=== PATIENT | male | born 1960 | race Caucasian/White ===

== ENCOUNTER 2016-11-13 14:58 | Emergency (ER) | payer OTHER ==
[~2016-11-13] VITALS: Ht 175.3 cm; Wt 190.9 kg
[~2016-11-13 14:58] MED LIST: DICL50TA PO; MELO-1 PO; ROBA750T PO
[2016-11-13 16:41] VITALS: BP 138/74; PULSE 96; RESP 14; TEMP 98.6; O2SAT 96
[2016-11-13 16:53] LABS: AUTOMATED NEUTROPHIL # 5.5 TH/MM3 (1.8-7.7); BASOPHIL % 0.5 % (0.0-2.0); EOSINOPHIL # 0.4 TH/MM3 (0-0.4); EOSINOPHIL % 4.8 % (0.0-4.0); HEMATOCRIT 41.5 % (39.0-51.0); HEMO FLAGS DIFF FINAL; LYMPH % 17.2 % (9.0-44.0); LYMPHOCYTE # 1.4 TH/MM3 (1.0-4.8); MEAN CELL VOLUME 92.9 FL (80.0-100.0); MEAN CORPUSCULAR HGB CONC 33.3 % (32.0-36.0); MONO % 9.9 % (0.0-8.0); NEUT % 67.6 % (16.0-70.0); PLATELET COUNT 188 TH/MM3 (150-450); RED BLOOD COUNT 4.47 MIL/MM3 (4.50-5.90); RED CELL DISTRIBUTION WIDTH 13.7 % (11.6-17.2); WHITE BLOOD COUNT 8.2 TH/MM3 (4.0-11.0)
[2016-11-13 17:18] LABS: ANION GAP 10 MEQ/L (5-15); AST (GOT) 27 U/L (15-37); BICARBONATE 29.4 MEQ/L (21.0-32.0); BLOOD UREA NITROGEN 20 MG/DL (7-18); CHLORIDE 102 MEQ/L (98-107); GLOMERULAR FILTRATION RATE 78 ML/MIN (>89); SODIUM (NA) 141 MEQ/L (136-145)
[2016-11-13 17:21] LABS: ALKALINE PHOSPHATASE 86 U/L (45-117); ALT (GPT) 35 U/L (12-78); TOTAL BILIRUBIN ADULT 0.4 MG/DL (0.2-1.0)
[2016-11-13 17:56] VITALS: BP 152/104; PULSE 96; RESP 20; TEMP 98.6; O2SAT 98
--- NOTE | 2016-11-13 18:09 | PD ---
HPI Chief Complaint: Psychiatric Symptoms Time Seen by Provider: 18:03 Travel History International Travel<30 days: No Contact w/Intl Traveler<30days: No Traveled to known affect area: No History of Present Illness HPI 55-year-old male that presents to the ED for evaluation of psych. [facility] to [facility] and suicidal ideation. per rios act patient is being more depressed and anxious secondary to problems with his left knee as well as recent move and stressors. He denies any drug abuse. Per patient his symptoms and mother and continued to get worse. He denies any homicidal ideation. Per rios he does have a history of bipolar disorder and has been suicidal. Denies any chest pain or shortness of breath. Denies any other complaint other than pain on the left knee which is chronic from multiple injuries for which he was told that he will require a knee replacement. Patient has no allergies to medication. Nothing makes symptoms better or worse. PFSH Past Medical History Cardiovascular Problems: Yes ([place] 2012) Hypertension: Yes Myocardial Infarction: Yes Past Surgical History Tonsillectomy: Yes Social History Alcohol Use: Yes Tobacco Use: No Substance Use: No Allergies-Medications (Allergen,Severity, Reaction): Coded Allergies: No Known Allergies (Unverified , 07/11/16) Reported Meds & Prescriptions Reported Meds & Active Scripts Active Robaxin (Methocarbamol) 750 Mg Tab 750 Mg PO TID PRN Diclofenac Potassium 50 Mg Tab 50 Mg PO TID PRN Reported Meloxicam 15 Mg Tab 15 Mg PO DAILY Review of Systems General / Constitutional: No: Fever, Chills, Weight Gain, Weight Loss, Other Eyes: No: Diploplia, Blurred Vision, Photophobia, Drainage, Redness, Foreign Body Sensation, Pain, Tearing, Blind Spots, Visual changes, Blindness, Other HENT: No: Headaches, Vertigo, Lightheadedness, Sore Throat, Rhinitis, Rhinorrhea, Congestion, Nosebleed, Neck Stiffness, Neck Pain, Masses, Gingival Bleeding, Dental Difficulties, Ear Discharge, Earache, Other Cardiovascular: No: Chest Pain or Discomfort, Palpitations, Irregular Rhythm, Tachycardia, Diaphoresis, Syncope, Dyspnea on exertion, Varicosities, Edema, Cyanosis, Varicosities, Phlebitis, Claudication, Other Respiratory: No: Cough, Shortness of Breath, Wheezing, Sneezing, Orthopnea, Hemoptysis, Stridor, Night Sweats, Pleuritic Pain, Other Gastrointestinal: No: Nausea, Vomiting, Diarrhea, Abdominal Pain, Hematemesis, Hematochezia, Constipation, Changes in Bowel Habits, Indigestion, Dysphagia, Loss of Appetite, Other Genitourinary: No: Urgency, Frequency, Dysuria, Nocturia, Hematuria, Decreased Urinary Output, Oliguria, Hesitancy, Dribbling, Incontinence, Pelvic Pain, Flank Pain, Dyspareunia, Discharge, Dysmenorrhea, Menorrhagia, Metorrhagia, Vaginal Bleeding, Other Musculoskeletal: Positive: Pain, No: Myalgias, Arthralgias, Limited ROM, Weakness, Cramping, Edema, Atrophy, Other Skin: No Rash, No Itching, No Dryness, No Lumps, No Hives, No Change in Pigmentation, No Change in nails, No Alopecia, No Lesions, No Breast Lumps, No Breast Tenderness, No Breast Swelling, No Other Neurologic: No: Weakness, Dizziness, Syncope, Focal Abnormalities, Coordination Problem, Tremor, Ataxia, Headache, Change in Mentation, Slurred Speech, Paresthesia, Incontinence, Seizures, Sensory Disturbance, Other Psychiatric: Positive: Anxiety, Depression, Mood Disorder, No: Suicidal Ideations, Disorder of Thought, Substance Abuse, Homicidal Ideation, Other Endocrine: No: Heat Intolerance, Cold Intolerance, Polyuria, Polydipsia, Other Hematologic/Lymphatic: No: Easy Bruising, Lymph Node Enlargement, Other Physical Exam Narrative GENERAL: SKIN: Warm and dry. HEAD: Atraumatic. Normocephalic. EYES: Pupils equal and round. No scleral icterus. No injection or drainage. ENT: No nasal bleeding or discharge. Mucous membranes pink and moist. Tongue is midline. No uvula deviation. NECK: Trachea midline. No JVD. CARDIOVASCULAR: Regular rate and rhythm. No murmurs, S3, S4. RESPIRATORY: No accessory muscle use. Clear to auscultation. Breath sounds equal bilaterally. GASTROINTESTINAL: Abdomen soft, non-tender, nondistended. Hepatic and splenic margins not palpable. MUSCULOSKELETAL: Extremities without clubbing, cyanosis, or edema. No obvious deformities. Full range of motion of the upper and lower extremities bilaterally with exception of the left knee which she cannot completely flex secondary to discomfort. Patient has any brace in place. 2+ pulses bilaterally. NEUROLOGICAL: Awake and alert. No obvious cranial nerve deficits. Motor grossly within normal limits. Five out of 5 muscle strength in the arms and legs. Normal speech. PSYCHIATRIC: Depressed mood and affect; insight and judgment normal. Data Data Last Documented VS Vital Signs Date Time Temp Pulse Resp B/P Pulse Ox O2 Delivery O2 Flow Rate FiO2 11/13/16 17:56 98.6 96 20 152/104 98 Room Air Orders Complete Blood Count With Diff (11/13/16 15:21) Comprehensive Metabolic Panel (11/13/16 15:21) Psych Screen (11/13/16 15:21) Drug Screen, Random Urine (11/13/16 15:21) Alcohol (Ethanol) (11/13/16 15:21) Labs Laboratory Tests Test 11/13/16 16:30 White Blood Count 8.2 TH/MM3 Red Blood Count 4.47 MIL/MM3 Hemoglobin 13.8 GM/DL Hematocrit 41.5 % Mean Corpuscular Volume 92.9 FL Mean Corpuscular Hemoglobin 31.0 PG Mean Corpuscular Hemoglobin 33.3 % Concent Red Cell Distribution Width 13.7 % Platelet Count 188 TH/MM3 Mean Platelet Volume 9.7 FL Neutrophils (%) (Auto) 67.6 % Lymphocytes (%) (Auto) 17.2 % Monocytes (%) (Auto) 9.9 % Eosinophils (%) (Auto) 4.8 % Basophils (%) (Auto) 0.5 % Neutrophils # (Auto) 5.5 TH/MM3 Lymphocytes # (Auto) 1.4 TH/MM3 Monocytes # (Auto) 0.8 TH/MM3 Eosinophils # (Auto) 0.4 TH/MM3 Basophils # (Auto) 0.0 TH/MM3 CBC Comment DIFF FINAL Differential Comment Sodium Level 141 MEQ/L Potassium Level 4.0 MEQ/L Chloride Level 102 MEQ/L Carbon Dioxide Level 29.4 MEQ/L Anion Gap 10 MEQ/L Blood Urea Nitrogen 20 MG/DL Creatinine 0.99 MG/DL Estimat Glomerular Filtration 78 ML/MIN Rate Random Glucose 107 MG/DL Calcium Level 9.2 MG/DL Total Bilirubin 0.4 MG/DL Aspartate Amino Transf 27 U/L (AST/SGOT) Alanine Aminotransferase 35 U/L (ALT/SGPT) Alkaline Phosphatase 86 U/L Total Protein 7.6 GM/DL Albumin 4.1 GM/DL Ethyl Alcohol Level LESS THAN 3 MG/DL MDM Medical Decision Making Medical Screen Exam Complete: Yes Emergency Medical Condition: Yes Medical Record Reviewed: Yes Interpretation(s) CBC & BMP Diagram 11/13/16 16:30 tox negative LFTS WNL Differential Diagnosis Depression versus suicidal ideation versus anxiety versus adjustment disorder versus mood disorder versus bipolar disorder versus schizophrenia versus paranoid disorder versus psychosis versus substance abuse versus alcohol abuse versus alcohol induced psychosis versus homicidality addition versus cutting versus personality disorder Narrative Course 55-year-old male that presents to the ED for evaluation of psych. Patient was properly examined and was found to have signs and symptoms consistent appears to be psychiatric illness. No sign of acute medical distress. Patient does have chronic left knee pain for which she has been seen here in the past. I do not see any need for new testing for this. Labs were drawn. Patient was medically clear. Okay to be seen by psych. Mental health screening was discussed with the patient. Diagnosis Primary Impression: Bipolar 1 disorder Merritt Luis Nov 13, 2016 18:09
--- NOTE | 2016-11-13 20:00 | PD ---
History of Present Illness Chief Complaint: Psychiatric Symptoms Time Seen by Provider: 19:30 Travel History International Travel<30 Days: No Contact w/Intl Traveler<30days: No Known affected area: No Legal Status Legal Status: Rios Act Rios Act Signed By: VICTORIANO signed by: BROOK Mauro #[id number] History of Present Illness: History of Present Illness HPI 55-year-old male with hx of bipolar disorder that presents to the ED under a BA initiated by psychiatrist at the [facility] alleging that the patient had suicidal ideation and questionable homicidal ideation of wanting to bust and hit his and the neighbor in the face.It is also reported that he had thoughts in the past week to hang himself." As per the patient he reported the above complaints the previous week at a previous appointmetn. He has nmot acted on any of these thoughts and he believed that he was going to the clinic today to talk to his psychiatrist. As er EMR review he has not had any previous contact with [facility] [place] [facility]. Patient seen in J pod. he is awake, alert and oriented. He appears stated age and is clean . His speech is fast but not pressured. There is no negrito. He denies current hallucinations, denies paranoia. He denies any suicidal or homicidal ideation, intent or plan and states " I love my and I love my children. I am also getting a law suit shortly, why would I want to hurt myself? . He does admit to being angry the past week with his neighbors. He reports medication compliance. I spoke with his , Yanira at [phone]. She corroborates his story and does state that he had been feeling more agitated a few weeks ago but that at this time he has not been agitated. She also reports that she encouraged him [facility] regarding [facility] past [facility] and feelings. She has no concerns for his safety or the safety of others if he were to be discharged. [facility] Past Medical History Cardiovascular Problems: Yes ([place] 2012) Hypertension: Yes Myocardial Infarction: Yes Past Surgical History Tonsillectomy: Yes Psychiatric History Psychiatric History Hx Psychiatric Treatment: currently in tx at the [facility] History of Inpatient Treatment: No Guns or firearms in home: No Social History x 31 years. currently lives in hotel room with his . he is unemployed and applying for social security disability Hx Alcohol Use: Yes Hx Tobacco Use: No Hx Substance Use: No (Denies) Hx of Substance Use Treatment: No Family Psychiatric History Negative Allergies-Medications (Allergen,Severity, Reaction): Coded Allergies: No Known Allergies (Unverified , 07/11/16) Reported Meds & Prescriptions Reported Meds & Active Scripts Active Robaxin (Methocarbamol) 750 Mg Tab 750 Mg PO TID PRN Diclofenac Potassium 50 Mg Tab 50 Mg PO TID PRN Reported Meloxicam 15 Mg Tab 15 Mg PO DAILY Review of Systems Except as stated in HPI: all other systems reviewed are Neg Musculoskeletal: COMPLAINS OF: Joint pain Psychiatric: COMPLAINS OF: Depression Exam Alert: Yes [place]: Person (ox4) Mood: Anxious Affect: Euthymic Speech: Clear, Logical Eye Contact: Normal Memory Intact: Comment (not impaired) Hallucinations: Other (negative) Delusions: No Suicidal: Ideation (denies any) Homicidal: Ideation (denies any) Insight/Judgement Fair . Not impaired. MDM Medical Decision Making Medical Record Reviewed: Yes Assessment/Plan 55 year old male with hx of bipolar disorder who is under a BA for suicidal and questionable homicidal ideation. It is reported by the patient and by his that he reported having the thoughts in the past week and not at this time. He denies any gestures or any hx of violence. He states that he has been under a lot of stress up until this week when he has received some good news. At this time he reports he just received and advance on a law suit that is pending, he has resubmitted his SSI application as well. He has adequate protective factors and at this time is deemed a low imminent risk to self and others. The BA will be lifted. He will be discharged to self Follow up with the [facility] Orders Complete Blood Count With Diff (11/13/16 15:21) Comprehensive Metabolic Panel (11/13/16 15:21) Psych Screen (11/13/16 15:21) Drug Screen, Random Urine (11/13/16 15:21) Alcohol (Ethanol) (3/9/17 15:21) Results Vital Signs Date Time Temp Pulse Resp B/P Pulse Ox O2 Delivery O2 Flow Rate FiO2 11/13/16 17:56 98.6 96 20 152/104 98 Room Air 11/13/16 16:41 98.6 96 14 138/74 96 Laboratory Tests Test 11/13/16 16:30 White Blood Count 8.2 Red Blood Count 4.47 Hemoglobin 13.8 Hematocrit 41.5 Mean Corpuscular Volume 92.9 Mean Corpuscular Hemoglobin 31.0 Mean Corpuscular Hemoglobin 33.3 Concent Red Cell Distribution Width 13.7 Platelet Count 188 Mean Platelet Volume 9.7 Neutrophils (%) (Auto) 67.6 Lymphocytes (%) (Auto) 17.2 Monocytes (%) (Auto) 9.9 Eosinophils (%) (Auto) 4.8 Basophils (%) (Auto) 0.5 Neutrophils # (Auto) 5.5 Lymphocytes # (Auto) 1.4 Monocytes # (Auto) 0.8 Eosinophils # (Auto) 0.4 Basophils # (Auto) 0.0 CBC Comment DIFF FINAL Differential Comment Sodium Level 141 Potassium Level 4.0 Chloride Level 102 Carbon Dioxide Level 29.4 Anion Gap 10 Blood Urea Nitrogen 20 Creatinine 0.99 Estimat Glomerular Filtration 78 Rate Random Glucose 107 Calcium Level 9.2 Total Bilirubin 0.4 Aspartate Amino Transf 27 (AST/SGOT) Alanine Aminotransferase 35 (ALT/SGPT) Alkaline Phosphatase 86 Total Protein 7.6 Albumin 4.1 Ethyl Alcohol Level LESS THAN 3 Diagnosis Primary Impression: Bipolar 1 disorder Psychiatrically Cleared: Yes Med/ Other Pt Specific Info: No Change to Meds Disposition: 01 DISCHARGE HOME Condition: Stable Chema Allendys Urmilaovidio ZEPEDA Nov 13, 2016 20:00
[2016-11-13 20:47] LABS: AMPHETAMINE, URINE NEG (NEG); BARBITURATES, URINE NEG (NEG); COCAINE, URINE NEG (NEG)
== END 2016-11-13 21:15 | disposition home or self-care (01) ==
LOC: NEDAMB 14:58 → NEPJ 21:15
DX: F31.9 Bipolar disorder, unspecified (principal); M25.562 Pain in left knee; G89.29 Other chronic pain; F32.9 Major depressive disorder, single episode, unspecified; I10 Essential (primary) hypertension; I25.2 Old myocardial infarction
CPT/HCPCS: 80053; 80307; 85025; 99284

== ENCOUNTER 2017-06-22 13:54 | Inpatient (IN) | payer OTHER ==
[2017-06-22] VITALS (10 sets, daily range): BP systolic 69–135; BP diastolic 43–92; PULSE 79–98; RESP 17–24; TEMP 98.2–98.7; O2SAT 94–99
[~2017-06-22] VITALS: Ht 175.3 cm; Wt 96.2 kg
[2017-06-22] MEDS ORDERED: SODIUM CHLORIDE 0.9% FLUSH 5 ML FLUSH IV FLUSH PRN (14:15)
[2017-06-22 14:22] LABS: HEMATOCRIT 33.6 % (39.0-51.0); MEAN CORPUSCULAR HEMOGLOBIN 29.7 PG (27.0-34.0); PLATELET COUNT 164 TH/MM3 (150-450); RED BLOOD COUNT 3.61 MIL/MM3 (4.50-5.90); RED CELL DISTRIBUTION WIDTH 14.2 % (11.6-17.2); WHITE BLOOD COUNT 21.3 TH/MM3 (4.0-11.0)
[2017-06-22] MEDS ORDERED: GABA300C5 PO (14:26)
[2017-06-22] MEDS ORDERED: ASPI81CH7 CHEW (14:26)
[2017-06-22] MEDS ORDERED: ATOR1TAB18 PO (14:26)
[2017-06-22] MEDS ORDERED: OMEP20TA PO (14:26)
[2017-06-22] MEDS ORDERED: TYLE325T PO (14:26)
[2017-06-22] MEDS ORDERED: DULO1CAP3 PO (14:26)
[2017-06-22] MEDS ORDERED: IBUP800T23 PO (14:26)
[2017-06-22] MEDS ORDERED: QUET-88 (14:26)
[2017-06-22] MEDS ORDERED: LISI40TA PO (14:26)
[2017-06-22] MEDS ORDERED: TRAZ100T6 PO (14:26)
[2017-06-22] MEDS ORDERED: [UNRECOGNIZED DRUG - OTHER] (14:26)
[2017-06-22 14:28] LABS: HEMO FLAGS AUTO DIFF
[2017-06-22 14:32] LABS: PROTHROMBIN TIME - PATIENT 11.5 SEC (9.8-11.6)
[2017-06-22 14:45] LABS: ALT (GPT) 25 U/L (12-78)
[2017-06-22 14:50] LABS: ACETAMINOPHEN LESS THAN 2.0 MCG/ML (10.0-30.0); ALKALINE PHOSPHATASE 63 U/L (45-117); CREATINE KINASE 541 U/L (39-308); TOTAL BILIRUBIN ADULT 0.6 MG/DL (0.2-1.0)
--- NOTE | 2017-06-22 14:53 | RADRPT ---
EXAM DATE/TIME: 06/22/2017 14:31 [facility] COMPARISON: No previous studies available for comparison. INDICATIONS : Syncope. MEDICAL HISTORY : Hypercholesterolemia. SURGICAL HISTORY : Tonsillectomy. ENCOUNTER: Initial ACUITY: 1 day PAIN SCORE: Non-responsive. LOCATION: Bilateral chest FINDINGS: A single view of the chest demonstrates the lungs to be symmetrically aerated without evidence of mas s, infiltrate or effusion. The cardiomediastinal contours are unremarkable. Osseous structures are intact. CONCLUSION: No acute disease. Conrad Collins MD on June 22, 2017 at 14:51 Board Certified Radiologist. This report was verified electronically.
[2017-06-22 14:57] LABS: ANION GAP 17 MEQ/L (5-15); AST (GOT) 26 U/L (15-37); BICARBONATE 16.1 MEQ/L (21.0-32.0); BLOOD UREA NITROGEN 59 MG/DL (7-18); CHLORIDE 109 MEQ/L (98-107); GLOMERULAR FILTRATION RATE 8 ML/MIN (>89); POTASSIUM 3.7 MEQ/L (3.5-5.1); SODIUM (NA) 142 MEQ/L (136-145)
[2017-06-22 15:03] LABS: CKMB 3.4 NG/ML (0.5-3.6)
[2017-06-22 15:09] LABS: ALCOHOL LESS THAN 3 MG/DL (0-5)
[2017-06-22 15:23] LABS: BANDS 24 % (0-6); METAMYELOCYTES 2 % (0-1); NEUTROPHIL # MANUAL DIFF 19.4 TH/MM3 (1.8-7.7); POLYS (SEG NEUTROPHILS) 65 % (16-70); WBC DIFF SAMPLE 100
[2017-06-22 15:24] LABS: PLATELET ESTIMATE SMEAR NORMAL (NORMAL); PLATELET MORPHOLOGY NORMAL (NORMAL); SCAN/DIFF FINAL DIFF MANUAL
[2017-06-22] MEDS ORDERED: PIPERACIL-TAZO 3.375 GM PREMIX 50 ML IV ONE (15:45)
[2017-06-22 16:04] LABS: BACTERIA, URINE RARE /hpf; BLOOD, URINE TRACE (NEG); GLUCOSE,URINE NEG (NEG); HYALINE CAST, URINE 82 /lpf (RARE); KETONE, URINE NEG (NEG); MUCUS URINE FEW /lpf (OCC); NITRITE,URINE NEG (NEG); PH, URINE 5.5 (5.0-8.5); SQUAMOUS EPITHELIAL CELL URINE 1 /hpf (0-5); URINE COLOR YELLOW (YELLW/STRAW)
[2017-06-22 16:15] LABS: COMMENT (UR) CATH-CULTURE IND; CULTURE IF INDICATED CATH CULTURE IND
[2017-06-22] MEDS ORDERED: SODIUM CHLOR 0.9% 1000 ML INJ 1,000 ML IV ONE ×2 (16:45→17:00)
--- NOTE | 2017-06-22 16:57 | RADRPT ---
EXAM DATE/TIME: 06/22/2017 16:42 [facility] COMPARISON: No previous studies available for comparison. INDICATIONS : Altered mental status and general weakness. RADIATION DOSE: 56.35 CTDIvol (mGy) MEDICAL HISTORY : Hypertension. Cardiovascular disease SURGICAL HISTORY : None. ENCOUNTER: Initial ACUITY: 1 day PAIN SCALE: 0/10 LOCATION: cranial TECHNIQUE: Multiple contiguous axial images were obtained of the head. Using automated exposure control and adj ustment of the mA and/or kV according to patient size, radiation dose was kept as low as reasonably a chievable to obtain optimal diagnostic quality images. DICOM format image data is available electro nically for review and comparison. FINDINGS: CEREBRUM: The ventricles are normal for age. No evidence of midline shift, mass lesion, hemorrhage or acute in farction. No extra-axial fluid collections are seen. POSTERIOR FOSSA: The cerebellum and brainstem are intact. The 4th ventricle is midline. The cerebellopontine angle i s unremarkable. EXTRACRANIAL: The visualized portion of the orbits is intact. SKULL: The calvaria is intact. No evidence of skull fracture. CONCLUSION: 1. No acute intracranial abnormality. Jann Huerta MD on June 22, 2017 at 16:54 Board Certified Radiologist. This report was verified electronically.
[2017-06-22] MEDS ORDERED: SENNOSIDES 8.6 MG TAB PO PRN (17:15)
[2017-06-22] MEDS ORDERED: BISACODYL 10 MG SUPP RECTAL PRN (17:15)
[2017-06-22] MEDS ORDERED: MAGNESIUM HYDROXIDE SUSP 30 ML CUP PO PRN (17:15)
[2017-06-22] MEDS ORDERED: RESP: ALBUTEROL 2.5 MG/IPRATROPIUM 0.5 MG NEB (PRN) INH (17:15)
[2017-06-22] MEDS ORDERED: MISCELLANEOUS NURSING INFORMATION XX SCH (17:15)
[2017-06-22] MEDS ORDERED: LACTULOSE SYRUP 20 GM/30 ML CUP PO PRN (17:15)
[2017-06-22] MEDS ORDERED: CHLORHEXIDINE GLUCONATE 2 % 1 PACK (2 CLOTHS) TOP PRN (17:15)
--- NOTE | 2017-06-22 17:36 | PD ---
HPI Chief Complaint: Altered Mental Status Time Seen by Provider: 14:08 Travel History International Travel<30 days: No Contact w/Intl Traveler<30days: No Traveled to known affect area: No History of Present Illness HPI Patient is a 56-year-old male who comes in due to altered mental status. He says that today he has been unable to walk. He says this is due to pain in his left hip. He also says that recently his doctor increased his Seroquel. He denies taking anything he was not supposed to. He does say that he was hanging out with some "[place] " yesterday and he did have a few beers. He says he is not sure what they gave him. He denies any chest pain or shortness of breath. He denies any headache. His only complaint is left hip pain, which is chronic, which he says he is suing the [employer] over. He denies doing anything to hurt himself. PFSH Past Medical History Cardiovascular Problems: Yes ([place] ) High Cholesterol: Yes Hypertension: Yes Myocardial Infarction: Yes Past Surgical History Tonsillectomy: Yes Social History Alcohol Use: Yes Tobacco Use: No (QUIT IN 2008) Substance Use: Yes (MARIJ[place]) Allergies-Medications (Allergen,Severity, Reaction): Coded Allergies: divalproex sodium (Verified Allergy, Unknown, 06/22/17) fluoxetine (Verified Allergy, Unknown, 06/22/17) lithium (Verified Allergy, Unknown, 06/22/17) naproxen (Verified Allergy, Unknown, 06/22/17) Reported Meds & Prescriptions Reported Meds & Active Scripts Active Robaxin (Methocarbamol) 750 Mg Tab 750 Mg PO TID PRN Reported Tylenol (Acetaminophen) 325 Mg Tab 325 Mg PO Q6H PRN Ibuprofen 800 Mg Tab 800 Mg PO TID Aspirin Children's (Aspirin) 81 Mg Chew 81 Mg CHEW DAILY [Sidenafalcitrate 50] 50 Mg Gabapentin 300 Mg Cap 300 Mg PO TID Duloxetine DR (Duloxetine HCl) 60 Mg Capdr 60 Mg PO DAILY Lisinopril 40 Mg Tab 40 Mg PO DAILY Trazodone (Trazodone HCl) 100 Mg Tablet 200 Mg PO HS Atorvastatin (Atorvastatin Calcium) 80 Mg Tab 80 Mg PO HS Quetiapine Fumarate ER (Quetiapine Fumarate) 200 Mg Tab Omeprazole 20 Mg Tab 20 Mg PO DAILY Meloxicam 15 Mg Tab 15 Mg PO DAILY Review of Systems Except as stated in HPI: all other systems reviewed are Neg General / Constitutional: No: Fever, Chills Eyes: No: Blurred Vision HENT: No: Headaches, Lightheadedness Cardiovascular: No: Chest Pain or Discomfort Respiratory: No: Shortness of Breath Gastrointestinal: No: Nausea, Vomiting, Abdominal Pain Musculoskeletal: Positive: Pain Skin: No Rash, No Change in Pigmentation Neurologic: No: Weakness, Dizziness, Syncope Physical Exam Narrative GENERAL: Awake and alert, in no acute distress. SKIN: Focused skin assessment warm/dry. No wounds. HEAD: Atraumatic. Normocephalic. EYES: Pupils equal and round and reactive. No scleral icterus. Extraocular movements intact. ENT: Mucous membranes pink and moist. NECK: Trachea midline. No JVD. CARDIOVASCULAR: Regular rate and rhythm. No murmur appreciated. RESPIRATORY: No accessory muscle use. Clear to auscultation. Breath sounds equal bilaterally. GASTROINTESTINAL: Abdomen soft, non-tender, nondistended. MUSCULOSKELETAL: No obvious deformities. No clubbing. No cyanosis. No edema. NEUROLOGICAL: Awake and alert. No obvious cranial nerve deficits. Motor grossly within normal limits. Normal speech. PSYCHIATRIC: Appropriate mood and affect; insight and judgment normal. Data Data Last Documented VS Vital Signs Date Time Temp Pulse Resp B/P (MAP) Pulse Ox O2 Delivery O2 Flow Rate FiO2 06/22/17 15:57 85 24 81/45 (57) 95 Room Air 06/22/17 14:05 98.4 Orders Orders Electrocardiogram (06/22/17 14:09) Complete Blood Count With Diff (06/22/17 14:09) Comprehensive Metabolic Panel (06/22/17 14:09) Creatine Kinase (Cpk) (06/22/17 14:09) Prothrombin Time / Inr (Pt) (06/22/17 14:09) Act Partial Throm Time (Ptt) (06/22/17 14:09) Troponin I (06/22/17 14:09) Urinalysis - C+S If Indicated (06/22/17 14:09) Chest, Single Ap (06/22/17 14:09) Ct Brain W/O Iv Contrast(Rout) (06/22/17 14:09) Blood Glucose (06/22/17 14:09) Ecg Monitoring (06/22/17 14:09) Iv Access Insert/Monitor (06/22/17 14:09) Oximetry (06/22/17 14:09) Sodium Chloride 0.9% Flush (Ns Flush) (06/22/17 14:15) Drug Screen, Random Urine (06/22/17 14:09) Alcohol (Ethanol) (06/22/17 14:09) Tylenol (Acetaminophen) (06/22/17 14:09) Salicylates (Aspirin) (06/22/17 14:09) CKMB (06/22/17 14:10) CKMB% (06/22/17 14:10) Lactic Acid (06/22/17 15:06) Piperacil-Tazo 3.375 Gm Premix (Zosyn 3. (06/22/17 15:45) Urine Culture (06/22/17 15:32) Aristes (Li) (06/22/17 16:30) Sodium Chlor 0.9% 1000 Ml Inj (Ns 1000 M (06/22/17 16:45) Sodium Chlor 0.9% 1000 Ml Inj (Ns 1000 M (06/22/17 17:00) Admit Order (Ed Use Only) (06/22/17 ) Aspirin Chew (Aspirin Chew) (06/23/17 09:00) Labs Laboratory Tests Test 06/22/17 14:10 06/22/17 15:18 06/22/17 15:32 White Blood Count 21.3 TH/MM3 Red Blood Count 3.61 MIL/MM3 Hemoglobin 10.7 GM/DL Hematocrit 33.6 % Mean Corpuscular Volume 93.0 FL Mean Corpuscular Hemoglobin 29.7 PG Mean Corpuscular Hemoglobin Concent 32.0 % Red Cell Distribution Width 14.2 % Platelet Count 164 TH/MM3 Mean Platelet Volume 9.5 FL CBC Comment AUTO DIFF Differential Total Cells Counted 100 Neutrophils % (Manual) 65 % Band Neutrophils % 24 % Lymphocytes % 4 % Monocytes % 5 % Neutrophils # (Manual) 19.4 TH/MM3 Metamyelocytes 2 % Differential Comment FINAL DIFF MANUAL Platelet Estimate NORMAL Platelet Morphology Comment NORMAL Prothrombin Time 11.5 SEC Prothromb Time International Ratio 1.0 RATIO Activated Partial Thromboplast Time 23.0 SEC Blood Urea Nitrogen 59 MG/DL Creatinine 6.93 MG/DL Random Glucose 127 MG/DL Total Protein 6.0 GM/DL Albumin 3.0 GM/DL Calcium Level 7.7 MG/DL Alkaline Phosphatase 63 U/L Aspartate Amino Transf (AST/SGOT) 26 U/L Alanine Aminotransferase (ALT/SGPT) 25 U/L Total Bilirubin 0.6 MG/DL Sodium Level 142 MEQ/L Potassium Level 3.7 MEQ/L Chloride Level 109 MEQ/L Carbon Dioxide Level 16.1 MEQ/L Anion Gap 17 MEQ/L Estimat Glomerular Filtration Rate 8 ML/MIN Total Creatine Kinase 541 U/L Creatine Kinase MB 3.4 NG/ML Creatine Kinase MB % 0.6 % Troponin I 0.04 NG/ML Salicylates Level LESS THAN 1.7 MG/DL Acetaminophen Level LESS THAN 2.0 MCG/ML Ethyl Alcohol Level LESS THAN 3 MG/DL Lactic Acid Level 1.0 mmol/L Urine Color YELLOW Urine Turbidity HAZY Urine pH 5.5 Urine Specific [place] 1.025 Urine Protein 100 mg/dL Urine Glucose (UA) NEG mg/dL Urine Ketones NEG mg/dL Urine Occult Blood TRACE Urine Nitrite NEG Urine Bilirubin NEG Urine Urobilinogen 2.0 MG/DL Urine Leukocyte Esterase MOD Urine RBC 2 /hpf Urine WBC 82 /hpf Urine WBC Clumps FEW Urine Squamous Epithelial Cells 1 /hpf Urine Bacteria RARE /hpf Urine Hyaline Casts 82 /lpf Urine Mucus FEW /lpf Microscopic Urinalysis Comment CATH-CULTURE IND Urine Opiates Screen NEG Urine Barbiturates Screen NEG Urine Amphetamines Screen POS Urine Benzodiazepines Screen NEG Urine Cocaine Screen NEG Urine Cannabinoids Screen NEG MDM Medical Decision Making Medical Screen Exam Complete: Yes Emergency Medical Condition: Yes Medical Record Reviewed: Yes Interpretation(s) ECG shows normal sinus rhythm at 96, no ST elevation or depression, normal intervals Differential Diagnosis Sepsis versus ICH versus intoxication Narrative Course Patient is a 56-year-old male comes in due to weakness and altered mental status. Patient is awake and alert and oriented currently. IV established, labs sent, patient connected to the rn cardiac rehab. Patient is hypotensive. He responds briefly to fluids, and then drops his pressure again. However he maintains appropriate mentation. Abscess show a creatinine of 6.9, which is a change from his previous of less than 1. Tox screen is positive for amphetamines. White blood cell count is elevated to 21. Urinalysis is positive for bacteria and white blood cells. Patient given Zosyn. Chest x-ray shows no acute abnormalities. CT head shows no acute abnormalities. Patient will be admitted for sepsis and hypotension. As well as renal failure. Critical Care Narrative Aggregate critical care time was 35 minutes. Time to perform other separately billable procedures was not included in the critical care time. My time did not include minutes spent treating any other patients simultaneously or on activities that did not directly contribute to the patient's treatment. The services I provided to this patient were to treat and/or prevent clinically significant deterioration that could result in: Serious illness or I provided critical care services requiring my management, as noted below: Chart data review, documentation time, medication orders and management, vital sign assessments/reviewing monitor data, ordering and reviewing lab tests, ordering and interpreting/reviewing x-rays and diagnostic studies, care of the patient and discussion of the patient with the admitting physicians. Diagnosis Primary Impression: Sepsis Qualified Codes: A41.9 - Sepsis, unspecified organism Additional Impressions: UTI (urinary tract infection) Qualified Codes: N30.00 - Acute cystitis without hematuria Acute renal failure Qualified Codes: N17.9 - Acute kidney failure, unspecified Admitting Information Admitting Physician Requests: Brynn Shen MD Jun 22, 2017 17:36
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
[2017-06-22] MEDS: SODIUM CHLOR 0.9% 1000 ML INJ 1,000 ML IV SCH ×2 (18:13→23:45)
[2017-06-22] MEDS ORDERED: VANCOMYCIN INJ 1,000 MG in SODIUM CHLOR 0.9% 250 ML INJ 250 ML IV ONE (18:15)
--- NOTE | 2017-06-22 18:15 | RADRPT ---
EXAM DATE/TIME: 06/22/2017 17:57 [facility] COMPARISON: No previous studies available for comparison. INDICATIONS : Increased BUN/Creatnine. MEDICAL HISTORY : Myocardial infarction. Hypercholesterolemia. Hypertension. Suicide attempts. Al cohol use. Substance use. SURGICAL HISTORY : Tonsillectomy. ENCOUNTER: Initial ACUITY: 1 day PAIN SCORE: 0/10 LOCATION: Bilateral flank MEASUREMENTS: RIGHT KIDNEY: 11.5 x 4.8 x 5.5 cm LEFT KIDNEY: 11.8 x 4.8 x 6.1 cm FINDINGS: RIGHT KIDNEY: Renal cortex is normal in thickness and echotexture. No hydronephrosis, stone, or mass. LEFT KIDNEY: Renal cortex is normal in thickness and echotexture. No hydronephrosis, stone, or m ass. BLADDER: Within normal limits given the degree of distension. Bladder is decompressed CONCLUSION: Normal examination of the kidneys, ureters and bladder. Findings of possible hepatome dayanara vertical height of the liver 18.8 cm Joe Neil MD on June 22, 2017 at 18:12 Board Certified Radiologist. This report was verified electronically.
[2017-06-22] MEDS: CEFEPIME INJ 1,000 MG in SODIUM CHLORIDE 0.9% INJ 100 ML IV SCH (20:12)
[2017-06-22] MEDS: DOCUSATE SODIUM 50 MG/SENNA 8.6 MG TAB PO SCH (20:12)
[2017-06-22] MEDS: HEPARIN SODIUM - SQ 10,000 UNITS/ML VIAL SQ SCH (20:12)
[2017-06-22] MEDS: FAMOTIDINE 20 MG/2 ML VIAL IV PUSH SCH (20:12)
[2017-06-22 22:12] LABS: AUTOMATED NEUTROPHIL # 19.5 TH/MM3 (1.8-7.7); BASOPHIL % 0.1 % (0.0-2.0); EOSINOPHIL # 0.2 TH/MM3 (0-0.4); EOSINOPHIL % 0.8 % (0.0-4.0); HEMO FLAGS DIFF FINAL; LYMPH % 7.8 % (9.0-44.0); LYMPHOCYTE # 1.8 TH/MM3 (1.0-4.8); MEAN CELL VOLUME 93.3 FL (80.0-100.0); MEAN CORPUSCULAR HEMOGLOBIN 29.5 PG (27.0-34.0); MEAN CORPUSCULAR HGB CONC 31.7 % (32.0-36.0); MONO % 6.4 % (0.0-8.0); NEUT % 84.9 % (16.0-70.0); PLATELET COUNT 169 TH/MM3 (150-450); RED BLOOD COUNT 3.54 MIL/MM3 (4.50-5.90); RED CELL DISTRIBUTION WIDTH 14.5 % (11.6-17.2)
[2017-06-22 22:55] LABS: ALKALINE PHOSPHATASE 61 U/L (45-117); ALT (GPT) 25 U/L (12-78); ANION GAP 9 MEQ/L (5-15); AST (GOT) 20 U/L (15-37); BICARBONATE 20.8 MEQ/L (21.0-32.0); BLOOD UREA NITROGEN 57 MG/DL (7-18); CHLORIDE 115 MEQ/L (98-107); FERRITIN 101 NG/ML (26-388); GLOMERULAR FILTRATION RATE 13 ML/MIN (>89); POTASSIUM 3.2 MEQ/L (3.5-5.1); SODIUM (NA) 145 MEQ/L (136-145); TOTAL BILIRUBIN ADULT 0.6 MG/DL (0.2-1.0); TRANSFERRIN IRON PROFILE 227 MG/DL (200-360)
[2017-06-23] VITALS (10 sets, daily range): BP systolic 87–176; BP diastolic 50–106; PULSE 77–102; RESP 13–22; TEMP 98.3–98.8; O2SAT 94–97
[2017-06-23] MEDS ORDERED: CALCIUM GLUCONATE INJ 2 GM in SODIUM CHLORIDE 0.9% INJ 100 ML IV ONE (03:30)
[2017-06-23] MEDS ORDERED: POTASSIUM CHLORIDE 10 MEQ CONTROLLED RELEASE TAB PO SCH (03:30)
[2017-06-23] MEDS: CHLORHEXIDINE GLUCONATE 2 % 1 PACK (2 CLOTHS) TOP SCH (04:00)
[2017-06-23 04:27] LABS: AUTOMATED NEUTROPHIL # 17.5 TH/MM3 (1.8-7.7); BASOPHIL % 0.2 % (0.0-2.0); EOSINOPHIL # 0.4 TH/MM3 (0-0.4); EOSINOPHIL % 1.9 % (0.0-4.0); HEMATOCRIT 35.4 % (39.0-51.0); HEMO FLAGS DIFF FINAL; LYMPH % 8.6 % (9.0-44.0); LYMPHOCYTE # 1.8 TH/MM3 (1.0-4.8); MEAN CELL VOLUME 93.3 FL (80.0-100.0); MEAN CORPUSCULAR HEMOGLOBIN 30.4 PG (27.0-34.0); MEAN CORPUSCULAR HGB CONC 32.6 % (32.0-36.0); MONO % 5.4 % (0.0-8.0); NEUT % 83.9 % (16.0-70.0); PLATELET COUNT 164 TH/MM3 (150-450); RED CELL DISTRIBUTION WIDTH 14.5 % (11.6-17.2); WHITE BLOOD COUNT 20.9 TH/MM3 (4.0-11.0)
[2017-06-23 05:06] LABS: ALKALINE PHOSPHATASE 68 U/L (45-117); ALT (GPT) 23 U/L (12-78); ANION GAP 9 MEQ/L (5-15); AST (GOT) 18 U/L (15-37); BICARBONATE 21.5 MEQ/L (21.0-32.0); BLOOD UREA NITROGEN 51 MG/DL (7-18); CHLORIDE 116 MEQ/L (98-107); GLOMERULAR FILTRATION RATE 22 ML/MIN (>89); MAGNESIUM 2.4 MG/DL (1.5-2.5); POTASSIUM 3.2 MEQ/L (3.5-5.1); SODIUM (NA) 146 MEQ/L (136-145); TOTAL BILIRUBIN ADULT 0.6 MG/DL (0.2-1.0)
[2017-06-23] MEDS: HEPARIN SODIUM - SQ 10,000 UNITS/ML VIAL SQ SCH ×2 (05:32→18:13)
[2017-06-23] MEDS: CEFEPIME INJ 1,000 MG in SODIUM CHLORIDE 0.9% INJ 100 ML IV SCH ×2 (06:36→18:13)
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
[2017-06-23] MEDS: ASPIRIN 81 MG CHEW TAB CHEW SCH (09:31)
[2017-06-23] MEDS: DOCUSATE SODIUM 50 MG/SENNA 8.6 MG TAB PO SCH ×2 (09:31→21:00)
[2017-06-23] MEDS: FAMOTIDINE 20 MG/2 ML VIAL IV PUSH SCH ×2 (09:32→21:09)
[2017-06-23] MEDS: SODIUM CHLOR 0.9% 1000 ML INJ 1,000 ML IV SCH ×3 (09:34→23:53)
[2017-06-23] MEDS ORDERED: PNEUMOCOCCAL POLYVALENT INJ 25 MCG/0.5 ML SYR IM ONE (10:00)
[2017-06-23] MEDS ORDERED: INFLUENZA VIRUS VACCINE (QUADRIVALENT) 0.5 ML SYR IM ONE (10:00)
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
[2017-06-23] MEDS ORDERED: ACETAMINOPHEN 325 MG TAB PO PRN (16:15)
[2017-06-23] MEDS: DULoxetine HCl DR 60 MG CAP PO SCH (18:10)
[2017-06-23] MEDS: oxyCODONE/ACETAMINOPHEN 7.5 MG/325 MG TAB PO PRN (18:32)
--- NOTE | 2017-06-23 20:31 | EKG ---
Date Performed: 06/22/2017 Time Performed: 14:13:56 PTAGE: 56 years EKG: Sinus rhythm NORMAL ECG NO PREVIOUS TRACING DOCTOR: Serafin Bernard Interpretating Date/Time 06/23/2017 20:30:57
[2017-06-23] MEDS ORDERED: TRAZODONE 200 MG PO SCH (21:00)
[2017-06-23] MEDS: traZODone HCL 100 MG TAB PO SCH (21:09)
[2017-06-24] VITALS (8 sets, daily range): BP systolic 120–189; BP diastolic 76–112; PULSE 80–118; RESP 16–20; TEMP 97.5–98.1; O2SAT 92–96
[2017-06-24] MEDS: CHLORHEXIDINE GLUCONATE 2 % 1 PACK (2 CLOTHS) TOP SCH (04:00)
[2017-06-24] MEDS: oxyCODONE/ACETAMINOPHEN 7.5 MG/325 MG TAB PO PRN ×2 (06:01→12:54)
[2017-06-24] MEDS: HEPARIN SODIUM - SQ 10,000 UNITS/ML VIAL SQ SCH ×2 (06:02→16:53)
[2017-06-24] MEDS: CEFEPIME INJ 1,000 MG in SODIUM CHLORIDE 0.9% INJ 100 ML IV SCH ×2 (06:02→16:54)
[2017-06-24 07:45] LABS: AUTOMATED NEUTROPHIL # 10.6 TH/MM3 (1.8-7.7); BASOPHIL % 0.2 % (0.0-2.0); EOSINOPHIL # 0.4 TH/MM3 (0-0.4); EOSINOPHIL % 3.4 % (0.0-4.0); HEMO FLAGS DIFF FINAL; LYMPH % 6.4 % (9.0-44.0); LYMPHOCYTE # 0.8 TH/MM3 (1.0-4.8); MEAN CELL VOLUME 93.8 FL (80.0-100.0); MEAN CORPUSCULAR HEMOGLOBIN 30.3 PG (27.0-34.0); MEAN CORPUSCULAR HGB CONC 32.3 % (32.0-36.0); MONO % 6.2 % (0.0-8.0); NEUT % 83.8 % (16.0-70.0); PLATELET COUNT 175 TH/MM3 (150-450); RED BLOOD COUNT 3.73 MIL/MM3 (4.50-5.90); RED CELL DISTRIBUTION WIDTH 14.7 % (11.6-17.2); WHITE BLOOD COUNT 12.7 TH/MM3 (4.0-11.0)
[2017-06-24 08:19] LABS: ANION GAP 6 MEQ/L (5-15); AST (GOT) 13 U/L (15-37); BICARBONATE 23.4 MEQ/L (21.0-32.0); BLOOD UREA NITROGEN 26 MG/DL (7-18); CHLORIDE 117 MEQ/L (98-107); GLOMERULAR FILTRATION RATE 85 ML/MIN (>89); POTASSIUM 4.1 MEQ/L (3.5-5.1); SODIUM (NA) 146 MEQ/L (136-145)
[2017-06-24 08:25] LABS: ALKALINE PHOSPHATASE 83 U/L (45-117); ALT (GPT) 25 U/L (12-78); TOTAL BILIRUBIN ADULT 0.4 MG/DL (0.2-1.0)
[2017-06-24] MEDS: FAMOTIDINE 20 MG/2 ML VIAL IV PUSH SCH ×2 (09:03→20:53)
[2017-06-24] MEDS: ASPIRIN 81 MG CHEW TAB CHEW SCH (09:03)
[2017-06-24] MEDS: DOCUSATE SODIUM 50 MG/SENNA 8.6 MG TAB PO SCH ×2 (09:03→20:52)
[2017-06-24] MEDS: DULoxetine HCl DR 60 MG CAP PO SCH (09:03)
[2017-06-24] MEDS: SODIUM CHLOR 0.9% 1000 ML INJ 1,000 ML IV SCH ×2 (09:04→16:50)
--- NOTE | 2017-06-24 14:26 | HHI.PR ---
Subjective Remarks Patient denied chest anal, positive palpitation and dysuria No fever reported overnight Objective Vitals Vital Signs Date Time Temp Pulse Resp B/P (MAP) Pulse Ox O2 Delivery O2 Flow Rate FiO2 06/24/17 08:08 97.5 80 20 157/101 (119) 96 06/24/17 04:00 98.1 91 16 178/104 (128) 94 06/24/17 00:00 97.5 86 18 120/76 (91) 92 06/23/17 20:26 101 06/23/17 20:00 98.4 94 18 157/106 (123) 97 06/23/17 15:50 98.3 102 22 176/106 (129) 96 I/O 06/23/17 06/23/17 06/23/17 06/24/17 06/24/17 06/24/17 07:00 15:00 23:00 07:00 15:00 23:00 Intake Total 2088 ml 1950 ml Output Total 1500 ml 725 ml Balance 588 ml 1225 ml Intake Oral 480 ml IV Total 1608 ml 1950 ml Output Urine Total 1500 ml 725 ml # Bowel Movements 0 Result Diagram: 06/24/1730 06/24/1730 Objective Remarks GENERAL: This is a well-nourished, well-developed patient, in no apparent distress. SKIN: No rashes, warm and dry HEAD: Atraumatic. Normocephalic. EYES: Pupils equal round and reactive. Extraocular motions intact. No scleral icterus. ENT: Nose without bleeding, or drainage, Airway patent. NECK: Trachea midline. Supple CARDIOVASCULAR: Regular rate and rhythm without murmurs, gallops, or rubs. RESPIRATORY: Fair air entry bilaterally. No wheezes, rales, or rhonchi. GASTROINTESTINAL: Abdomen soft, non-tender, nondistended. Positive bowel sounds MUSCULOSKELETAL: Extremities without clubbing, cyanosis, or edema. Pedal pulses appreciated NEUROLOGICAL: Awake and alert. Moves all extremity. Normal speech.no focal neurological deficit A/P Problem List: (1) Septic shock ICD Code: A41.9 - Sepsis, unspecified organism; R65.21 - Severe sepsis with septic shock (2) Acute kidney failure ICD Code: N17.9 - Acute kidney failure, unspecified (3) UTI (urinary tract infection) ICD Code: N39.0 - Urinary tract infection, site not specified Status: Acute (4) Metabolic acidemia ICD Code: E87.2 - Acidosis (5) Leukocytosis ICD Code: D72.829 - Elevated white blood cell count, unspecified Assessment and Plan Acute metabolic encephalopathy Septic shock with UTI Hypertension FRANCISCO Bipolar disorder PTSD Suicidal ideation DVT profile Plan: Appreciate psychiatry recommendation started on Seroquel Continue anti-hypertensive, normal saline, aspirin Oxygen DuoNeb Iv fluid and monitor BMP, consult nephrology if creatinine not improving SCD and heparin for DVT prophylaxis Problem Qualifiers (1) Acute kidney failure: Qualified Codes: N17.9 - Acute kidney failure, unspecified (2) UTI (urinary tract infection): Qualified Codes: N30.00 - Acute cystitis without hematuria (3) Leukocytosis: Qualified Codes: D72.825 - Bandemia Joel Marrero MD Jun 24, 2017 14:26
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
[2017-06-24] MEDS: LISINOPRIL 20 MG TAB PO SCH (16:52)
[2017-06-24] MEDS: GABAPENTIN 300 MG CAP PO SCH (16:52)
[2017-06-24] MEDS: traZODone HCL 100 MG TAB PO SCH (20:52)
[2017-06-24] MEDS ORDERED: ATORVASTATIN 80 MG TAB PO SCH (21:00)
[2017-06-25] VITALS (8 sets, daily range): BP systolic 160–182; BP diastolic 90–130; PULSE 82–101; RESP 18–22; TEMP 97.7–99.1; O2SAT 93–96
[2017-06-25] MEDS: SODIUM CHLOR 0.9% 1000 ML INJ 1,000 ML IV SCH ×2 (00:15→08:41)
[2017-06-25] MEDS: oxyCODONE/ACETAMINOPHEN 7.5 MG/325 MG TAB PO PRN ×3 (02:58→15:47)
[2017-06-25] MEDS: CHLORHEXIDINE GLUCONATE 2 % 1 PACK (2 CLOTHS) TOP SCH (04:00)
[2017-06-25] MEDS: HEPARIN SODIUM - SQ 10,000 UNITS/ML VIAL SQ SCH (06:25)
[2017-06-25] MEDS: CEFEPIME INJ 1,000 MG in SODIUM CHLORIDE 0.9% INJ 100 ML IV SCH (06:25)
[2017-06-25] MEDS: DOCUSATE SODIUM 50 MG/SENNA 8.6 MG TAB PO SCH (08:26)
[2017-06-25] MEDS: LISINOPRIL 20 MG TAB PO SCH (08:26)
[2017-06-25] MEDS: GABAPENTIN 300 MG CAP PO SCH ×2 (08:26→11:51)
[2017-06-25] MEDS: DULoxetine HCl DR 60 MG CAP PO SCH (08:26)
[2017-06-25] MEDS: ASPIRIN 81 MG CHEW TAB CHEW SCH (08:27)
[2017-06-25 08:28] LABS: AUTOMATED NEUTROPHIL # 9.3 TH/MM3 (1.8-7.7); BASOPHIL % 0.4 % (0.0-2.0); EOSINOPHIL # 0.2 TH/MM3 (0-0.4); EOSINOPHIL % 2.1 % (0.0-4.0); HEMATOCRIT 34.9 % (39.0-51.0); HEMO FLAGS DIFF FINAL; LYMPHOCYTE # 1.3 TH/MM3 (1.0-4.8); MEAN CELL VOLUME 93.6 FL (80.0-100.0); MEAN CORPUSCULAR HGB CONC 32.1 % (32.0-36.0); MONO % 5.3 % (0.0-8.0); NEUT % 81.2 % (16.0-70.0); PLATELET COUNT 183 TH/MM3 (150-450); RED BLOOD COUNT 3.73 MIL/MM3 (4.50-5.90); RED CELL DISTRIBUTION WIDTH 14.4 % (11.6-17.2); WHITE BLOOD COUNT 11.4 TH/MM3 (4.0-11.0)
[2017-06-25] MEDS: FAMOTIDINE 20 MG/2 ML VIAL IV PUSH SCH (08:28)
[2017-06-25 08:46] LABS: POTASSIUM 3.9 MEQ/L (3.5-5.1)
[2017-06-25] MEDS ORDERED: PANTOPRAZOLE SOD 20 MG DELAYED RELEASE TAB PO SCH (09:00)
[2017-06-25] MEDS ORDERED: LEVOFLOXACIN 250 MG TAB PO SCH (09:15)
[2017-06-25] MEDS ORDERED: hydrALAZINE HCL 20 MG/ML VIAL IV PUSH ONE ×2 (09:30→11:30)
[2017-06-25] MEDS ORDERED: LEVOFLOXACIN 500 MG TAB PO SCH (11:00)
[2017-06-25 11:53] LABS: BLOOD, URINE NEG (NEG); COMMENT (UR) CULT NOT INDICATED; CULTURE IF INDICATED CULT NOT INDICATED; GLUCOSE,URINE 300 mg/dL (NEG); KETONE, URINE TRACE mg/dL (NEG); MUCUS URINE FEW /lpf (OCC); NITRITE,URINE NEG (NEG); URINE COLOR YELLOW (YELLW/STRAW)
[2017-06-25] MEDS ORDERED: METOPROLOL TARTRATE 5 MG/5 ML VIAL IV PUSH ONE (12:00)
[2017-06-25] MEDS ORDERED: LORazepam 1 MG TAB PO ONE (12:30)
[2017-06-25] MEDS ORDERED: METOPROLOL TARTRATE 25 MG TAB PO SCH (12:30)
[2017-06-25] MEDS ORDERED: amLODIPine BESYLATE 5 MG TAB PO SCH (12:30)
--- NOTE | 2017-06-25 17:26 | HHI.PR ---
Subjective Remarks Patient having high blood pressure reaching 190/112, he was given lisinopril this a.m. but didn't help enough to reduce blood pressure I ordered hydralazine iv No chest pain no headache or blurry vision Objective Vitals Vital Signs Date Time Temp Pulse Resp B/P (MAP) Pulse Ox O2 Delivery O2 Flow Rate FiO2 06/25/17 15:58 180/122 (141) 06/25/17 13:49 160/90 (113) 06/25/17 12:00 97.7 86 18 182/130 (147) 95 06/25/17 11:18 17 06/25/17 11:02 88 180/120 (140) 06/25/17 09:10 180/120 (140) 06/25/17 08:00 98.4 82 18 168/120 (136) 96 06/25/17 07:50 91 06/25/17 00:00 99.1 101 22 164/97 (119) 93 06/24/17 20:00 97.9 100 20 158/90 (112) 93 06/24/17 19:52 118 I/O 06/24/17 06/24/17 06/24/17 06/25/17 06/25/17 06/25/17 07:00 15:00 23:00 07:00 15:00 23:00 Intake Total 2058 ml 1532 ml 2311 ml 194 ml Output Total 725 ml Balance 1333 ml 1532 ml 2311 ml 194 ml Intake Oral 480 ml 360 ml IV Total 2058 ml 1052 ml 1951 ml 194 ml Output Urine Total 725 ml # Voids 4 3 # Bowel Movements 0 1 1 Result Diagram: 06/25/1733 06/25/17632 Objective Remarks GENERAL: This is a well-nourished, well-developed patient, in no apparent distress. SKIN: No rashes, warm and dry HEAD: Atraumatic. Normocephalic. EYES: Pupils equal round and reactive. Extraocular motions intact. No scleral icterus. ENT: Nose without bleeding, or drainage, Airway patent. NECK: Trachea midline. Supple CARDIOVASCULAR: Regular rate and rhythm without murmurs, gallops, or rubs. RESPIRATORY: Fair air entry bilaterally. No wheezes, rales, or rhonchi. GASTROINTESTINAL: Abdomen soft, non-tender, nondistended. Positive bowel sounds MUSCULOSKELETAL: Extremities without clubbing, cyanosis, or edema. Pedal pulses appreciated NEUROLOGICAL: Awake and alert. Moves all extremity. Normal speech.no focal neurological deficit A/P Problem List: (1) Septic shock ICD Code: A41.9 - Sepsis, unspecified organism; R65.21 - Severe sepsis with septic shock (2) Acute kidney failure ICD Code: N17.9 - Acute kidney failure, unspecified (3) UTI (urinary tract infection) ICD Code: N39.0 - Urinary tract infection, site not specified Status: Acute (4) Metabolic acidemia ICD Code: E87.2 - Acidosis (5) Leukocytosis ICD Code: D72.829 - Elevated white blood cell count, unspecified Assessment and Plan Acute metabolic encephalopathy Septic shock with UTI Uncontrolled Hypertension FRANCISCO Bipolar disorder PTSD Suicidal ideation DVT profile Plan: Appreciate psychiatry recommendation started on Seroquel Continue anti-hypertensive, normal saline, aspirin Oxygen DuoNeb Iv fluid and monitor BMP, consult nephrology if creatinine not improving SCD and heparin for DVT prophylaxis 06/25: Severely uncontrolled blood pressure reaching 200/120, 2 doses of hydralazine iv 10 mg was given after lisinopril 40 mg by mouth, initially decreased blood pressure to 170/90 but then went back up, I ordered for the patient to go to another floor and be placed on iv antihypertensive however patient refuse and he left AMA despite extensive counseling Problem Qualifiers (1) Acute kidney failure: Qualified Codes: N17.9 - Acute kidney failure, unspecified (2) UTI (urinary tract infection): Qualified Codes: N30.00 - Acute cystitis without hematuria (3) Leukocytosis: Qualified Codes: D72.825 - Bandemia Joel Marrero MD Jun 25, 2017 17:26
--- NOTE | 2017-06-25 17:28 | HHI.DS ---
Discharge Summary Admission Date Jun 22, 2017 at 16:55 Discharge Date: Jun 25, 2017 Admitting Diagnosis Hypotension, UTI, renal failure (1) Septic shock ICD Code: A41.9 - Sepsis, unspecified organism; R65.21 - Severe sepsis with septic shock Diagnosis: Principal (2) Acute kidney failure ICD Code: N17.9 - Acute kidney failure, unspecified Diagnosis: Principal (3) UTI (urinary tract infection) ICD Code: N39.0 - Urinary tract infection, site not specified Diagnosis: Principal Status: Acute (4) Metabolic acidemia ICD Code: E87.2 - Acidosis Diagnosis: Principal (5) Leukocytosis ICD Code: D72.829 - Elevated white blood cell count, unspecified Diagnosis: Principal Procedures See below Brief History - From Admission Patient is a 56-year-old male with past medical history significant for hypertension, bipolar disorder, PTSD who was brought in to the emergency department by his for altered mentation. Today at 1 AM patient got up to go to the bathroom and collapsed on the floor, lost bowel and bladder continence. There was no seizure, or loss of consciousness. assisted him back to the bed and he refused to go to the hospital. Since then patient was altered. Recently [facility] increased increased his Seroquel and duloxetine. He did have a 'few beers' yesterday and smoked marijuana. Urine drug screen positive for amphetamines but he denies taking any methamphetamines. ECG shows normal sinus rhythm at 96, no acute ST-T wave changes. Patient presented profoundly hypotensive with systolic blood pressure in the 70s. He was given 3 L normal saline which increased systolic blood pressure to mid 80s. Lab data showed a white count of 21.3 with 24% bands, BUN of 15 and creatinine of 7 previously creatinine was normal. UA showed evidence of UTI. CPK was only mildly elevated. I evaluated the patient in the ED. He is lying in the ED gurney occasional jerking movements of the lower extremities. His systolic blood pressure is in mid 80's now after 3 L normal saline boluses. I have ordered additional 2 L bolus and insertion of Matson catheter. Patient will be placed on cefepime 1 g every 12 renally dosed and will give single dose of vancomycin, to cover for gram-positives including enterococci. (Received Zosyn in the ED). Chest x-ray and CT of the head did not show any acute abnormality. History of profound hypotension seems to be secondary to severe dehydration and septic shock CBC/BMP: 06/25/17 0633 06/25/17 0633 Significant Findings Laboratory Tests Test 06/22/17 18:35 06/22/17 19:39 06/22/17 21:48 06/23/17 04:20 Hemoglobin 11.2 GM/DL (13.0-17.0) 10.4 GM/DL (13.0-17.0) 11.6 GM/DL (13.0-17.0) Creatinine 5.26 MG/DL (0.60-1.30) 4.59 MG/DL (0.60-1.30) 2.93 MG/DL (0.60-1.30) Estimat Glomerular Filtration Rate 11 ML/MIN (>89) 13 ML/MIN (>89) 22 ML/MIN (>89) White Blood Count 23.0 TH/MM3 (4.0-11.0) 20.9 TH/MM3 (4.0-11.0) Red Blood Count 3.54 MIL/MM3 (4.50-5.90) 3.80 MIL/MM3 (4.50-5.90) Hematocrit 33.0 % (39.0-51.0) 35.4 % (39.0-51.0) Mean Corpuscular Hemoglobin Concent 31.7 % (32.0-36.0) Neutrophils (%) (Auto) 84.9 % (16.0-70.0) 83.9 % (16.0-70.0) Lymphocytes (%) (Auto) 7.8 % (9.0-44.0) 8.6 % (9.0-44.0) Neutrophils # (Auto) 19.5 TH/MM3 (1.8-7.7) 17.5 TH/MM3 (1.8-7.7) Monocytes # (Auto) 1.5 TH/MM3 (0-0.9) 1.1 TH/MM3 (0-0.9) Blood Urea Nitrogen 57 MG/DL (7-18) 51 MG/DL (7-18) Random Glucose 110 MG/DL (74-106) Total Protein 5.6 GM/DL (6.4-8.2) 6.2 GM/DL (6.4-8.2) Albumin 2.7 GM/DL (3.4-5.0) 2.8 GM/DL (3.4-5.0) Calcium Level 7.2 MG/DL (8.5-10.1) 7.8 MG/DL (8.5-10.1) Potassium Level 3.2 MEQ/L (3.5-5.1) 3.2 MEQ/L (3.5-5.1) Chloride Level 115 MEQ/L (98-107) 116 MEQ/L (98-107) Carbon Dioxide Level 20.8 MEQ/L (21.0-32.0) Protein Corrected Calcium 8.0 MG/DL (8.5-10.1) Iron Level 15 MCG/DL (65-175) Percent Iron Saturation 4.7 % (20-50) Sodium Level 146 MEQ/L (136-145) Test 06/24/17 06:30 06/25/17 06:33 06/25/17 11:30 White Blood Count 12.7 TH/MM3 (4.0-11.0) 11.4 TH/MM3 (4.0-11.0) Red Blood Count 3.73 MIL/MM3 (4.50-5.90) 3.73 MIL/MM3 (4.50-5.90) Hemoglobin 11.3 GM/DL (13.0-17.0) 11.2 GM/DL (13.0-17.0) Hematocrit 35.0 % (39.0-51.0) 34.9 % (39.0-51.0) Neutrophils (%) (Auto) 83.8 % (16.0-70.0) 81.2 % (16.0-70.0) Lymphocytes (%) (Auto) 6.4 % (9.0-44.0) Neutrophils # (Auto) 10.6 TH/MM3 (1.8-7.7) 9.3 TH/MM3 (1.8-7.7) Lymphocytes # (Auto) 0.8 TH/MM3 (1.0-4.8) Blood Urea Nitrogen 26 MG/DL (7-18) Albumin 2.7 GM/DL (3.4-5.0) Calcium Level 8.3 MG/DL (8.5-10.1) Aspartate Amino Transf (AST/SGOT) 13 U/L (15-37) Sodium Level 146 MEQ/L (136-145) Chloride Level 117 MEQ/L (98-107) 115 MEQ/L (98-107) Estimat Glomerular Filtration Rate 85 ML/MIN (>89) Urine Glucose (UA) 300 mg/dL (NEG) Urine Ketones TRACE mg/dL (NEG) Urine Mucus FEW /lpf (OCC) PE at Discharge GENERAL: This is a well-nourished, well-developed patient, in no apparent distress. SKIN: No rashes, warm and dry HEAD: Atraumatic. Normocephalic. EYES: Pupils equal round and reactive. Extraocular motions intact. No scleral icterus. ENT: Nose without bleeding, or drainage, Airway patent. NECK: Trachea midline. Supple CARDIOVASCULAR: Regular rate and rhythm without murmurs, gallops, or rubs. RESPIRATORY: Fair air entry bilaterally. No wheezes, rales, or rhonchi. GASTROINTESTINAL: Abdomen soft, non-tender, nondistended. Positive bowel sounds MUSCULOSKELETAL: Extremities without clubbing, cyanosis, or edema. Pedal pulses appreciated NEUROLOGICAL: Awake and alert. Moves all extremity. Normal speech.no focal neurological deficit Hospital Course Acute metabolic encephalopathy Septic shock with UTI Uncontrolled Hypertension FRANCISCO Bipolar disorder PTSD Suicidal ideation DVT profile Hospital course was as follows Psychiatry consultation obtained they started on Seroquel Continue anti-hypertensive aspirin Oxygen DuoNeb Iv fluid and monitor BMP, consult nephrology if creatinine not improving SCD and heparin for DVT prophylaxis On 06/25: Severely uncontrolled blood pressure reaching 200/120, 2 doses of hydralazine iv 10 mg was given after lisinopril 40 mg by mouth, initially decreased blood pressure to 170/90 but then went back up, I ordered for the patient to go to another floor and be placed on iv antihypertensive however patient refuse and he left AMA despite extensive counseling Pt Condition on Discharge: Guarded Discharge Disposition: Discharge Home (please be noted, patient was not discharged but rather he left AMA, we don't have this as an option for discharge disposition) Discharge Time: > 30 minutes Joel Marrero MD Jun 25, 2017 17:28
[2017-06-26] MEDS ORDERED: LEVOFLOXACIN 250 MG TAB PO SCH (09:00)
== END 2017-06-25 18:02 | disposition left against medical advice (07) | DRG 871 ==
LOC: NEPE 13:54 → NEDA 16:55 → HIMN 18:25 → N04A 06-23 15:45
PROVIDERS: ADMIT Hospitalist; ATTEND Hospitalist
DX: A41.9 Sepsis, unspecified organism (principal); R65.21 Severe sepsis with septic shock; G93.41 Metabolic encephalopathy; E87.2 Acidosis; N17.9 Acute kidney failure, unspecified; N30.00 Acute cystitis without hematuria; I10 Essential (primary) hypertension; F31.9 Bipolar disorder, unspecified; F43.10 Post-traumatic stress disorder, unspecified; E86.0 Dehydration; D64.9 Anemia, unspecified; E78.00 Pure hypercholesterolemia, unspecified; M25.569 Pain in unspecified knee; R26.2 Difficulty in walking, not elsewhere classified; G89.29 Other chronic pain; Z87.891 Personal history of nicotine dependence; I25.2 Old myocardial infarction; Z23 Encounter for immunization; Z79.82 Long term (current) use of aspirin
CPT/HCPCS: 70450; 71010; 76775; 80048; 80053; 80178; 80307; 81001; 82550; 82552; 82565; 82570; 82607; 82728; 83540; 83550; 83605; 83735; 84295; 84300; 84484; 85007; 85018; 85025; 85027; 85610; 85730; 87040; 87086; 87641; 90686; 90732; 93005; 94664; 96365; J0360; J0610; J0692; J1644; J2543; J3370; J7030; J7050; Q2038